=== PATIENT | male | born 1940 | race African-American/Black ===

== ENCOUNTER 2017-09-05 12:45 | Outpatient (RCR) | payer OTHER | END 2017-09-24 | disposition home or self-care (01) | LOC: PTY 12:45 | PROVIDERS: ATTEND Internal Medicine | DX: M25.512 Pain in left shoulder (principal) ==

== ENCOUNTER 2017-09-26 13:00 | Outpatient (RCR) | payer OTHER | END 2017-10-25 | disposition home or self-care (01) | LOC: PTY 13:00 | PROVIDERS: ATTEND Internal Medicine | DX: M25.512 Pain in left shoulder (principal) ==

== ENCOUNTER 2017-11-14 13:00 | Outpatient (RCR) | payer OTHER | END 2017-11-24 | disposition home or self-care (01) | LOC: PTY 13:00 | PROVIDERS: ATTEND Internal Medicine | DX: M25.512 Pain in left shoulder (principal) ==